=== PATIENT | male | born 1985 | race Caucasian/White ===

== ENCOUNTER 2018-07-25 15:00 | Inpatient (IN) | payer MEDICAID, OTHER ==
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
[2018-07-25] MEDS ORDERED: LORazepam 2 MG/ML INJ ONE (15:24)
[2018-07-25] MEDS: LORazepam 1 MG TAB PO ONE ×2 (15:25→19:16)
[2018-07-25] MEDS ORDERED: LORazepam 2 MG/ML INJ IM ONE (15:25)
[2018-07-25 15:51] LABS: PLATELET COUNT 265 10^3/uL (150-400)
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
--- NOTE | 2018-07-25 19:20 | ASMTTCLDSP ---
[facility] Discharge Disposition Disposition: Answers: Admit Discharge Concerns/Recommendations: Notes: In consultation with [facility] ED physician, Vernon Dailey MD and on-call psychiatrist, Regan Turner MD, both concurred that pt appears to meet 27-65 criteria requiring psychiatric hospitalization as pt appears gravely disabled due to a mental illness condition. Pt was given the 3N prohibited belongings list while in the ED. Was patient given the Answers: Yes Inpatient Behavioral Health Prohibited Belongings List while in the ED? For inpatient Regan Turner MD admission, the following psychiatrist agreed to accept patient for admission to [facility]al [facility]): Date Signed: 07/25/2018 07:19 PM Electronically Signed By:Mercedes Pete
[2018-07-25] MEDS ORDERED: MAG HYDROX/AL HYDROX/SIMETH 30 ML UDCUP PO PRN (22:14)
[2018-07-25] MEDS ORDERED: LORazepam 0.5 MG TAB PO PRN (22:14)
[2018-07-25] MEDS ORDERED: ACETAMINOPHEN 325 MG TAB PO PRN (22:14)
[2018-07-25] MEDS ORDERED: MAGNESIUM HYDROXIDE 30 ML UDCUP PO PRN (22:14)
[2018-07-25] MEDS ORDERED: NICOTINE POLACRILEX 2 MG GUM B PRN (22:14)
[2018-07-25] MEDS ORDERED: MELATONIN 3 MG TAB PO PRN (22:16)
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
[2018-07-26] MEDS: OLANZapine DISINTEGR 10 MG TAB PO PRN (11:08)
--- NOTE | 2018-07-26 14:17 | BCON ---
INTERNAL MEDICINE CONSULTATION DATE OF CONSULTATION: 07/26/2018 REFERRING PHYSICIAN: Regan Turner MD REASON FOR REFERRAL: Medical clearance for inpatient behavioral health stay. HISTORY OF PRESENT ILLNESS: This person self presented at the emergency department with complaints of hearing voices and belief that there was a device in his head. He was agitated. He was evaluated by the mental health team after receiving some sedating medications and placed on an M1 hold and admitted for further psychiatric care. Currently, he complains of foot pain, more so on the left than the right. He is very sleepy, so history is very limited. He does endorse that he has been doing a lot of walking and some of it barefoot. PAST MEDICAL HISTORY: Psychiatric issues with diagnoses in the chart of schizoaffective disorder, PTSD, depression and anxiety. PAST SURGICAL HISTORY: He has not had any surgeries. MEDICATIONS: Per the notes in the chart, he may not have been taking any medications. There is also mention of prescriptions for Abilify and trazodone. ALLERGIES: There are no known drug allergies. SOCIAL HISTORY: He was living with his mother for some recent period of time, but subsequently has been homeless. He is a tobacco smoker. In the emergency department he admitted to methamphetamine use approximately 10 hours previously. His urine drug screen was positive for THC. FAMILY HISTORY: Noncontributory. REVIEW OF SYSTEMS: Very limited as he is very somnolent. He denies cough or dyspnea, fevers or chills. He endorses doing a lot of walking lately and he has foot pain on the left more than the right. He says it feels like it is on fire. PHYSICAL EXAM: VITAL SIGNS: Blood pressure is 102/50, heart rate is 82, respiratory rate is 14, oxygen saturation is 97% on room air, temperature is 36.7 degrees centigrade. His weight is 72.6 kg for a body mass index of 21.1. GENERAL: This is an unkempt man, appears his chronologic age, dressed in hospital scrub pants and a green [facility] [place]. Sleeping, easily awakened, but returns to sleep in mid conversation, in no acute distress. HEENT: Extraocular movements are intact. He was not compliant with further testing. Mucous membranes are moist. Dentition on cursory exam appears to be in good condition. NECK: Supple. HEART: There is a regular rate and rhythm with no murmurs, rubs, or gallops. LUNGS: Clear to auscultation bilaterally. ABDOMEN : Benign. EXTREMITIES: There is no cyanosis or clubbing. His left foot has considerable swelling and mild erythema on the plantar surface over the metatarsophalangeal joints approximately 1-3 and extending approximately 5 cm. He has similar swelling on the right plantar foot, but covering less area. He is quite tender on the left plantar foot more so than on the right. Dorsalis pedis pulses are 2+ bilaterally. NEUROLOGIC: He is sleepy. He alerts to verbal stimulation but then falls back to sleep. He is overall cooperative with requests to the extent that he can maintain alertness. Cranial nerves 2- 12 are grossly intact. He moves all extremities. Sensation is grossly intact to light touch. LABORATORY STUDIES: Drawn in the emergency department: CBC was within normal limits but for a slight elevation of absolute monocytes of no clinical significance. Serum chemistry revealed normal renal function and electrolytes, glucose was low at 69. Toxicology screen in the serum was negative for salicylates, acetaminophen or ethyl alcohol. Toxicology screen in the urine was non negative for THC, but otherwise negative for substances of abuse. ASSESSMENT AND RECOMMENDATIONS: 1. Mental health issues. Pending further evaluation and management per Psychiatry and the mental health team. 2. Tobacco dependence syndrome. Did not have the opportunity to discuss it with him due to his somnolence. He would benefit from smoking cessation. 3. Foot pain of unclear etiology. Very swollen and tender on the plantar surface of the left foot. Doubt infection with intact skin and no obvious break with intact skin and minimal erythema. I will get x-rays bilaterally of the feet to rule out fractures. Otherwise, expect gradual improvement if it is simply from excessive walking. Acetaminophen has been prescribed and that is appropriate. 4. Somnolence, likely from psychiatric medications. I see no medical contraindications to this patient's continued stay on the inpatient behavioral health unit or to any psychiatric medications or procedures. Thank you very much for including me in the care of this patient and please do not hesitate to contact me or the hospitalist service should there be need for further medical evaluation. /[id number]/MODL MTDD
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
--- NOTE | 2018-07-27 13:17 | ASMTCMCOM ---
CM Note CM Note Notes: CC contacted [facility] at [phone] to confirm that client was open to them. They noted that client is currently not open to there organization CC will have client complete ppw for [facility] services, etc. Also, client participated in treatment planning today; however, has heavily disorganized and appears to be responding to internal stimuli. Date Signed: 07/27/2018 01:17 PM Electronically Signed By:Popeye Clarke
[2018-07-27] MEDS: OLANZapine DISINTEGR 10 MG TAB PO PRN (14:41)
--- NOTE | 2018-07-27 17:23 | SOAPPROG ---
SOAP Progress Note Assessment/Plan: Assessment: Plan: 07/27/18 17:22 Psychosis: Remains acutely psychotic. Will schedule Zyprexa at HS, monitor. Subjective: Pt seen, discussed with staff, interviewed in Treatment Team meeting. He continues to isolate in his room. More agitated this morning, agreed to take PRN Zyprexa with good effect. Unable to identify specific treatment goals. Agreeable to staying in the hospital for now. States he plans to stay in the [facility]. Objective: Vital Signs Temp Pulse Resp BP Pulse Ox 36.5 C 47 L 14 96/48 L 95 07/27/18 06:00 07/27/18 06:00 07/27/18 06:00 07/27/18 06:00 07/27/18 06:00 MSE: Guarded, though interactive with myself and team. Affect is constricted, irritable. Mood is "OK." TP is disorganized, unable to stay on topic with questions. TC reveals ongoing persecutory and bizarre thoughts, IOR's, AH's. - Time Spent With Patient Time Spent With Patient: 25" ICD10 Worksheet Patient Problems: Problems Problem Status Onset Acute psychosis Acute Paranoid type schizophrenia Acute
[2018-07-27] MEDS ORDERED: OLANZapine DISINTEGR 10 MG TAB PO SCH (21:00)
[2018-07-28 06:27] VITALS: BP 94/54
--- NOTE | 2018-07-28 11:13 | ASMTBHDC ---
Notes Note: Notes: Per provider client will be discharging today from the unit (see below): Follow up with: [facility] [address] [facility] Intake Appt: This is for the initial 30 minute appt to do paperwork and Ct should bring ID, insurance card, etc. [place] office: [address] [place] [address] Mon, Wed, and Fri 8:30am-2pm. Due to short stay CC could not confirm client's follow up appts, provided the walkin times and dates Other Offices [place] office: [address], [place] [address] Mon. and Wed., 9 am-2 pm [place] office: [address] [facility], 2nd floor (adults), [place] [address] Mon-Fri., 9 am-2 pm Additional Resources: [place] [facility] Location: [address] [place] [id number] Coordinated Entry must be done prior to discharge [facility] [address] [place] [address] Date Signed: 07/28/2018 11:13 AM Electronically Signed By:Popeye Clarke
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
== END 2018-07-28 12:28 | disposition home or self-care (01) | DRG 885 ==
LOC: BBEH 21:17
PROVIDERS: ADMIT Psychiatry & Neurology Psychiatry; ATTEND Psychiatry & Neurology Psychiatry
DX: F20.0 Paranoid schizophrenia (principal); F15.951 Other stimulant use, unspecified with stimulant-induced psychotic disorder with hallucinations; F12.951 Cannabis use, unspecified with psychotic disorder with hallucinations; T43.506A Underdosing of unspecified antipsychotics and neuroleptics, initial encounter; F17.200 Nicotine dependence, unspecified, uncomplicated; Z59.0 Homelessness
CPT/HCPCS: 80305; G0480; J2060

== ENCOUNTER 2018-07-29 00:01 | Emergency (ER) | payer MEDICAID ==
--- NOTE | 2018-07-29 00:24 | EDPHY ---
H & P Stated Complaint: Feeling anxious and SOB onset 1.5 hours ago Time Seen by Provider: 07/29/18 00:05 HPI/ROS: Chief Complaint: Cough, difficulty breathing HPI: 33-year-old male smoker presenting with his tightness in his chest, cough and mild difficulty breathing for the last hour and a half. He does have a history of smoking both cigarettes and cannabis. Cough is nonproductive. No chest pain. No fevers or chills. No nausea or vomiting. Is making him feel mildly anxious. He is not suicidal or paranoid at this time. Does have a history of a recent psychiatric admission. He has been taking his medications in feeling improved. He is currently homeless. ROS: 10 systems were reviewed and were negative except those elements noted in the HPI. PMH: Denies Social History: Positive smoking, occasional marijuana and methamphetamine Family History: non-contributory Physical Exam: Gen: Awake, Alert, No Distress, unkempt HEENT: Nose: no rhinorrhea Eyes: PERRLA, EOMI Mouth: Moist mucosa Neck: Supple, no JVD Chest: nontender, mild diffuse expiratory wheeze with forced expiration Heart: S1, S2 normal, no murmur Abd: Soft, non-tender, no guarding Back: no CVA tenderness, no midline tenderness Ext: no edema, non-tender Skin: no rash Neuro: CN II-XII intact, Sensation grossly intact, Strength 5/5 in bilateral upper and lower extremities - Personal History Current Tetanus Diphtheria and Acellular Pertussis (TDAP): Yes - Medical/Surgical History Hx Asthma: Yes Hx Chronic Respiratory Disease: No Hx Diabetes: No Hx Cardiac Disease: No Hx Renal Disease: No Hx Cirrhosis: No Hx Alcoholism: No Hx HIV/AIDS: No Hx Splenectomy or Spleen Trauma: No Other PMH: psych hx l knee surg, PTSD, depression, anxiety, schizophrenia - Social History Smoking Status: Heavy smoker Constitutional: Initial Vital Signs Temperature (C) 36.3 C 07/29/18 00:05 Heart Rate 93 07/29/18 00:05 Respiratory Rate 16 07/29/18 00:05 Blood Pressure 138/77 H 07/29/18 00:05 O2 Sat (%) 94 07/29/18 00:05 O2 Delivery Mode Room Air Allergies/Adverse Reactions: No Known Allergies Allergy (Verified 07/29/18 05:28) Home Medications: Medication Instructions Recorded ARIPiprazole [Abilify 5 mg (*)] 5 mg PO DAILY #30 tab 07/28/18 Zyprexa 07/29/18 Medical Decision Making ED Course/Re-evaluation: Patient is improved after albuterol neb. Lungs are clear. Will discharge with follow-up as an outpatient. - Data Points Medications Given: Discontinued Medications Albuterol (Proventil Neb) 3 ml IH EDNOW ONE Stop: 07/29/18 00:31 Last Admin: 07/29/18 00:37 Dose: 3 ml Albuterol Sulfate (Proventil Inh Prepack) 1 mdi TAKEHOME EDNOW ONE Stop: 07/29/18 01:51 Last Admin: 07/29/18 02:02 Dose: 1 mdi Departure - Departure Disposition: Home, Routine, Self-Care Clinical Impression: Bronchitis Condition: Good Instructions: Albuterol (By breathing), Acute Bronchitis (ED) Additional Instructions: You may use the albuterol inhaler 1-2 puffs every 2-4 hours as needed for cough or wheeze. Follow up at [facility] in 2-3 days for further evaluation. Return to the emergency department for increasing cough, shortness of breath, fevers, chills, or any other concerns. Referrals: [facility],. [Clinic] - As per Instructions
[2018-07-29] MEDS ORDERED: ALBUTEROL 3 ML DEYVIAL IH ONE (00:30)
[2018-07-29] MEDS ORDERED: ALBUTEROL INH PREPACK MDI TAKEHOME ONE (01:50)
[2018-07-29 02:01] VITALS: BP 98/62
== END 2018-07-29 02:08 | disposition home or self-care (01) ==
DX: J40 Bronchitis, not specified as acute or chronic (principal); F17.200 Nicotine dependence, unspecified, uncomplicated; Z59.0 Homelessness
CPT/HCPCS: J7613

== ENCOUNTER 2018-07-29 05:22 | Emergency (ER) | payer MEDICAID, OTHER ==
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
[2018-07-29 06:31] LABS: PLATELET COUNT 271 10^3/uL (150-400)
[2018-07-29 07:24] VITALS: BP 108/75
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
--- NOTE | 2018-07-29 08:04 | ASMTTCLDSP ---
TLC Discharge Disposition Disposition Notes: Notes: Pt stated commitment or ability to keep self safe, denied thoughts of self harm or harm to others. Pt was given local hotline information and [facility] brochure After an Attempt and encouraged to follow up with [facility] as instructed upon discharge yesterday from . Discharge Concerns/Recommendations: Notes: In consultation with [facility] ED physician, Hardeep Suarez MD, and on-call psychiatrist, Quinton Grove MD, both concurred that pt does not appear to meet 27-65 criteria requiring psychiatric hospitalization as pt does not appear to be an imminent risk of harm to self/others/gravely disabled due to a mental illness condition. Was patient given the Answers: Not applicable Inpatient Behavioral Health Prohibited Belongings List while in the ED? Date Signed: 07/29/2018 08:03 AM Electronically Signed By:Tyrese Pabon
== END 2018-07-29 08:07 | disposition home or self-care (01) ==
DX: F20.0 Paranoid schizophrenia (principal); F15.921 Other stimulant use, unspecified with intoxication delirium; F17.200 Nicotine dependence, unspecified, uncomplicated; Z86.59 Personal history of other mental and behavioral disorders
CPT/HCPCS: 80305; G0480

== ENCOUNTER 2018-07-31 08:23 | Emergency (ER) | payer MEDICAID ==
[2018-07-31 09:08] LABS: PLATELET COUNT 255 10^3/uL (150-400)
--- NOTE | 2018-07-31 09:23 | EDPHY ---
H & P Time Seen by Provider: 07/31/18 09:01 HPI/ROS: Chief complaint. Hearing voices HPI. 33-year-old male presents emergency department with increased hearing voices. He has had difficulty accessing his mental health meds. He tells me he has been hearing voices for years and they tell him to kill himself. He says is the same soon RO every day but getting worse. He tells me"I know there is a device in my head". He denies suicide and homicide ideation though the voices do tell him to kill himself. Denies alcohol or drugs other than marijuana. Chronic cough no fever. No abdominal pain. Patient was seen July 25 for hearing voices and had a T evaluation and was admitted to [facility] for acute psychosis. He was seen again on July 29 for paranoia and evaluated and discharged. ROS 10 systems were reviewed and negative with the exception of the elements mentioned in the history of present illness Past Medical/Surgical History: Schizophrenia, asthma, depression, anxiety, PTSD Social History: Single, daily smoker, denies alcohol Smoking Status: Heavy smoker Physical Exam: General Appearance: Alert well-developed male mild distress vitals are stable Eyes: Pupils equal and round no pallor or injection. ENT, Mouth: Mucous membranes are moist. Respiratory: There are no retractions, lungs are clear to auscultation. Cardiovascular: Regular rate and rhythm. Gastrointestinal: Abdomen is soft and nontender, no masses, bowel sounds normal. Neurological: Awake and alert, sensory and motor exams grossly normal. Skin: Warm and dry, no rashes. Musculoskeletal: Neck is supple nontender. Extremities symmetrical, full range of motion. Psychiatric: Patient is oriented X 3, there is no agitation. Constitutional: Initial Vital Signs Temperature (C) 36.5 C 07/31/18 08:30 Heart Rate 62 07/31/18 08:30 Respiratory Rate 18 07/31/18 08:30 Blood Pressure 116/68 07/31/18 08:30 O2 Sat (%) 99 07/31/18 08:30 O2 Delivery Mode Room Air Allergies/Adverse Reactions: No Known Allergies Allergy (Verified 07/29/18 05:28) Home Medications: Medication Instructions Recorded Aripiprazole [Abilify] 5 mg PO 07/31/18 OLANZapine [Zyprexa] 07/31/18 traZODone 07/31/18 Medical Decision Making ED Course/Re-evaluation: 11:40 a.m.. Patient's labs are reviewed. They are reassuring. Urine tox screen present only for TH C. No alcohol. Patient is cleared medically for mental health evaluation Patient has been evaluated by [facility]. They have found placement for this patient. Differential Diagnosis: This appears to be acute psychosis. Patient has a history of schizophrenia. He is hearing voices that are telling him dark things and to harm himself. No evidence for drug ingestion or withdrawal - Data Points Laboratory Results: Laboratory Results 07/31/18 08:45 07/31/18 08:45 07/31/18 07/31/18 07/31/18 10:10 08:45 08:45 WBC RBC Hgb Hct MCV MCH MCHC RDW Plt Count MPV Neut % (Auto) Lymph % (Auto) Lynn % (Auto) Eos % (Auto) Baso % (Auto) Nucleat RBC Rel Count Absolute Neuts (auto) Absolute Lymphs (auto) Absolute Monos (auto) Absolute Eos (auto) Absolute Basos (auto) Absolute Nucleated RBC Immature Gran % Immature Gran # Turbidity Cancelled Sodium Cancelled 140 mEq/L mEq/L (135-145) Potassium Cancelled 4.8 mEq/L mEq/L (3.3-5.0) Chloride Cancelled 103 mEq/L mEq/L (97-110) Carbon Dioxide Cancelled 30 mEq/l mEq/l (22-31) Anion Gap Cancelled 7 mEq/L L mEq/L (8-16) BUN Cancelled 15 mg/dL mg/dL (7-23) Creatinine Cancelled 0.8 mg/dL mg/dL (0.7-1.3) Estimated GFR Cancelled > 60 Glucose Cancelled 78 mg/dL mg/dL (70-100) Calcium Cancelled 9.5 mg/dL mg/dL (8.5-10.4) Urine Opiates Screen NEGATIVE (NEGATIVE) Urine Barbiturates NEGATIVE (NEGATIVE) Ur Phencyclidine Scrn NEGATIVE (NEGATIVE) Ur Amphetamine Screen NEGATIVE (NEGATIVE) U Benzodiazepines Scrn NEGATIVE (NEGATIVE) Urine Cocaine Screen NEGATIVE (NEGATIVE) U Marijuana (THC) Screen NON-NEGATIVE H (NEGATIVE) Ethyl Alcohol < 10 mg/dL mg/dL (0-10) 07/31/18 08:45 WBC 4.54 10^3/uL 10^3/uL (3.80-9.50) RBC 4.69 10^6/uL 10^6/uL (4.40-6.38) Hgb 15.0 g/dL g/dL (13.7-17.5) Hct 44.0 % % (40.0-51.0) MCV 93.8 fL fL (81.5-99.8) MCH 32.0 pg pg (27.9-34.1) MCHC 34.1 g/dL g/dL (32.4-36.7) RDW 13.3 % % (11.5-15.2) Plt Count 255 10^3/uL 10^3/uL (150-400) MPV 9.0 fL fL (8.7-11.7) Neut % (Auto) 50.5 % % (39.3-74.2) Lymph % (Auto) 32.6 % % (15.0-45.0) Lynn % (Auto) 7.9 % % (4.5-13.0) Eos % (Auto) 6.8 % % (0.6-7.6) Baso % (Auto) 2.0 % H % (0.3-1.7) Nucleat RBC Rel Count 0.0 % % (0.0-0.2) Absolute Neuts (auto) 2.29 10^3/uL 10^3/uL (1.70-6.50) Absolute Lymphs (auto) 1.48 10^3/uL 10^3/uL (1.00-3.00) Absolute Monos (auto) 0.36 10^3/uL 10^3/uL (0.30-0.80) Absolute Eos (auto) 0.31 10^3/uL 10^3/uL (0.03-0.40) Absolute Basos (auto) 0.09 10^3/uL 10^3/uL (0.02-0.10) Absolute Nucleated RBC 0.00 10^3/uL 10^3/uL (0-0.01) Immature Gran % 0.2 % % (0.0-1.1) Immature Gran # 0.01 10^3/uL 10^3/uL (0.00-0.10) Turbidity Sodium Potassium Chloride Carbon Dioxide Anion Gap BUN Creatinine Estimated GFR Glucose Calcium Urine Opiates Screen Urine Barbiturates Ur Phencyclidine Scrn Ur Amphetamine Screen U Benzodiazepines Scrn Urine Cocaine Screen U Marijuana (THC) Screen Ethyl Alcohol Medications Given: Discontinued Medications Olanzapine (Olanzapine) 5 mg PO ONCE ONE Stop: 07/31/18 11:31 Last Admin: 07/31/18 11:42 Dose: Not Given Olanzapine (Zyprexa Zydis) 5 mg PO EDNOW ONE Stop: 07/31/18 11:42 Last Admin: 07/31/18 11:44 Dose: 5 mg Departure - Departure Disposition: Other Psych, Not [place] Clinical Impression: Acute psychosis Condition: Fair Referrals: NONE *PRIMARY CARE P,. [Primary Care Provider] - As per Instructions
[2018-07-31] MEDS ORDERED: OLANZapine 5 MG TAB PO ONE (11:30)
[2018-07-31] MEDS ORDERED: OLANZapine DISINTEGR 5 MG TAB PO ONE (11:41)
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
--- NOTE | 2018-07-31 15:13 | ASMTTCLDSP ---
TLC Discharge Disposition Disposition: Answers: Transfer Disposition Notes: Notes: [facility] notified [facility] CAT team was notified that he was accepted at [facility]. Was patient given the Answers: Not applicable Inpatient Behavioral Health Prohibited Belongings List while in the ED? 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 Blackburn Psychiatrist: For Transfers, Reason [facility] found ATU placement approved by medicaid Patient is Being Transferred: Date Signed: 07/31/2018 03:12 PM Electronically Signed By:Bryant Antonio
[2018-07-31 15:43] VITALS: BP 130/79
== END 2018-07-31 16:35 ==
LOC: EDUNIT#
DX: R44.0 Auditory hallucinations (principal); T43.506A Underdosing of unspecified antipsychotics and neuroleptics, initial encounter
CPT/HCPCS: 80305; G0480